=== PATIENT | female | born 1940 | race Caucasian/White ===

== ENCOUNTER 2017-11-05 05:22 | Emergency (ER) | payer OTHER, MEDICARE ==
[~2017-11-05] VITALS: Ht 149.9 cm; Wt 60.3 kg
[2017-11-05] MEDS ORDERED: PERCOCET 5/31 TABLET PO (07:10)
[2017-11-05 07:47] VITALS: BP 134/64
== END 2017-11-05 08:12 | disposition home or self-care (01) ==
LOC: EME 05:22
DX: S42.291A Other displaced fracture of upper end of right humerus, initial encounter for closed fracture (principal); W01.0XXA Fall on same level from slipping, tripping and stumbling without subsequent striking against object, initial encounter; Y93.01 Activity, walking, marching and hiking; I10 Essential (primary) hypertension; Z88.1 Allergy status to other antibiotic agents
CPT/HCPCS: 73030; 73060; 99281; 99284

== ENCOUNTER 2017-11-07 12:47 | Emergency (ER) | payer OTHER, MEDICARE ==
[~2017-11-07] VITALS: Ht 144.8 cm; Wt 60.9 kg
[~2017-11-07 12:47] MED LIST: PERCOCET 5/31 TABLET PO
[2017-11-07 15:04] VITALS: BP 00/0
== END 2017-11-07 15:19 | disposition home or self-care (01) ==
LOC: EME 12:47
DX: S42.291D Other displaced fracture of upper end of right humerus, subsequent encounter for fracture with routine healing (principal); I10 Essential (primary) hypertension; Z88.1 Allergy status to other antibiotic agents
CPT/HCPCS: 99281; 99284